=== PATIENT | female | born 1970 | race Caucasian/White ===

== ENCOUNTER 2017-03-05 21:01 | Emergency (ER) | payer SELFPAY ==
[2013-10-15 02:20] VITALS: BMI 30.6
[~2017-03-05 21:01] MED LIST: ASPIRIN325 MG PO; BACTRIM DS TABL1 TAB PO; CIPRO500 MG PO; DUONEB 2.5-0.5 M3 ML UPD; NORCO 10/325 TA1 TA1 PO; PREDNISONE10 MG PO; PREDNISONE20 MG PO; PROVENTIL/2.5 MG/3 M INH; SYMBICORT 16010.2 GM INH; VENTOLIN HFA18 GM INH
[2017-03-05 23:08] LABS: BASOPHILS 0.3 % (0-2); EOSINOPHILS 12.7 % (0-7); HEMATOCRIT 44.1 % (36.0-48.0); HEMOGLOBIN 14.7 g/dL (12-16); IMMATURE GRANULOCYTES 0.3 % (0-5); LYMPHOCYTES 14.5 % (15-50); MCH 31.5 pg (26.0-34.0); MCHC 33.3 g/dL (31.0-37.0); MCV 94.6 fL (80.0-100.0); MEAN PLATELET VOLUME 10.7 fL (7.4-10.4); MONOCYTES 5.6 % (2-11); NEUTROPHILS 66.6 % (40-80); PLATELET COUNT 239 10x3/uL (130-400); RBC 4.66 10x6/uL (4.00-5.40); RDW 12.7 % (11.5-14.5); WBC 15.6 10x3/uL (4.8-10.8)
== END 2017-03-06 00:20 | disposition home or self-care (01) ==
LOC: D.ER 21:01
PROVIDERS: Emergency Medicine Emergency Medical Services
DX: R05 Cough (principal); R06.02 Shortness of breath; J45.909 Unspecified asthma, uncomplicated

== ENCOUNTER 2017-03-13 13:00 | Emergency (ER) | payer SELFPAY ==
[2013-10-15 02:20] VITALS: BMI 30.6
== END 2017-03-13 16:36 | disposition home or self-care (01) ==
LOC: D.ER 13:00
DX: J45.901 Unspecified asthma with (acute) exacerbation (principal)

== ENCOUNTER 2017-04-15 15:51 | Emergency (ER) | payer SELFPAY ==
[2013-10-15 02:20] VITALS: BMI 30.6
== END 2017-04-15 16:54 | disposition home or self-care (01) ==
LOC: D.ER 15:51
DX: J45.901 Unspecified asthma with (acute) exacerbation (principal); J20.9 Acute bronchitis, unspecified

== ENCOUNTER 2017-05-21 12:54 | Emergency (ER) | payer SELFPAY ==
[2013-10-15 02:20] VITALS: BMI 30.6
== END 2017-05-21 15:54 | disposition home or self-care (01) ==
LOC: D.ER 12:54
DX: J45.901 Unspecified asthma with (acute) exacerbation (principal); J20.9 Acute bronchitis, unspecified

== ENCOUNTER 2017-12-17 15:56 | Emergency (ER) | payer MEDICAID ==
[2013-10-15 02:20] VITALS: BMI 30.6
[2017-12-17 16:53] LABS: BASOPHILS 0.4 % (0-2); EOSINOPHILS 22.9 % (0-7); HEMATOCRIT 44.6 % (36.0-48.0); HEMOGLOBIN 14.4 g/dL (12-16); IMMATURE GRANULOCYTES 0.2 % (0-5); MCHC 32.3 g/dL (31.0-37.0); MCV 96.1 fL (80.0-100.0); MEAN PLATELET VOLUME 10.6 fL (7.4-10.4); MONOCYTES 5.1 % (2-11); NEUTROPHILS 44.4 % (40-80); PLATELET COUNT 255 10x3/uL (130-400); RBC 4.64 10x6/uL (4.00-5.40); RDW 13.4 % (11.5-14.5)
[2017-12-17 17:03] LABS: PROTIME 12.8 SECONDS (11.6-15.0)
[2017-12-17 17:13] LABS: ALBUMIN 3.7 g/dL (3.4-5.0); ALKALINE PHOSPHATASE 78 U/L (46-116); ALT (SGPT) 13 U/L (10-68); BILIRUBIN - TOTAL 0.35 mg/dL (0.2-1.3); CALC OSMOLALITY 281 mosm/kg (275-300); CALCIUM 8.3 mg/dL (8.5-10.1); CARBON DIOXIDE 25.9 mmol/L (21.0-32.0); CHLORIDE - SERUM 107 mmol/L (98-107); CREATININE - SERUM 0.7 mg/dL (0.6-1.3); GLUCOSE 99 mg/dL (74-106); POTASSIUM - SERUM 3.7 mmol/L (3.5-5.1); PROTEIN - SERUM 7.6 g/dL (6.4-8.2); SODIUM 142 mmol/L (136-145); UREA NITROGEN 11 mg/dL (7-18); eGFR NON AFRICAN AMERICAN > 90 mL/min (90-120)
[2017-12-17 17:21] LABS: CREATINE KINASE 50 UL (21-215); LIPASE 129 U/L (73-393); PRO BNP 181 pg/mL (0-125)
[2017-12-17 17:30] LABS: TROPONIN-I < 0.017 ng/mL (0.000-0.060)
[2017-12-17 18:46] LABS: APPEARANCE CLOUDY (CLEAR); BILIRUBIN NEGATIVE (NEGATIVE); COLOR YELLOW (YELLOW); GLUCOSE NEGATIVE (NEGATIVE); KETONE NEGATIVE (NEGATIVE); NITRITE NEGATIVE (NEGATIVE); PROTEIN NEGATIVE (NEGATIVE); SPECIFIC GRAVITY 1.015 (1.005-1.020); UROBILINOGEN NORMAL (NORMAL)
[2017-12-17 18:48] LABS: BACTERIA MODERATE /hpf (NONE SEEN); MUCUS <1+ /lpf (NONE SEEN); RED CELLS - URINE 0-5 /hpf (0-5); WHITE CELLS - URINE 0-5 /hpf (0-5)
== END 2017-12-17 19:20 | disposition home or self-care (01) ==
LOC: D.ER 15:56
PROVIDERS: Family Medicine; Nurse Practitioner Family
DX: J45.901 Unspecified asthma with (acute) exacerbation (principal); N39.0 Urinary tract infection, site not specified; N76.0 Acute vaginitis; B96.89 Other specified bacterial agents as the cause of diseases classified elsewhere; R00.0 Tachycardia, unspecified